=== PATIENT | female | born 1970 | race African-American/Black ===

== ENCOUNTER 2019-01-14 13:27 | Emergency (ER) | payer OTHER ==
--- OUTSIDE RECORDS SUMMARY | 2019-01-14 13:30 | XMS REPORT ---
:1970 Author Organization e[employer] Care Team Providers Name Role Phone Marissa Boyle Provider Role Unavailable Allergies, Adverse Reactions, Alerts Substance Reaction Event Type N.K.D.A. Info Not Available Non Drug Allergy Problems Problem Type Condition Code Onset Dates Condition Status Problem Body mass index (BMI) of 40.0-44.9 Z68.41 Active in adult Problem Morbid (severe) obesity due to E66.01 Active excess calories Problem Abnormal urine odor R82.90 Active Problem Urinary frequency R35.0 Active Problem Morbid obesity E66.01 Active Problem Essential hypertension I10 Active Problem Sinus problem J34.9 Active Problem Peripheral edema R60.9 Active Problem Family history of heart disease Z82.49 Active Problem Seasonal allergies J30.2 Active Assessment Dietary surveillance and counseling Z71.3 Active Assessment Abnormal urine odor R82.90 Active Assessment Body mass index (BMI) of 40.0-44.9 Z68.41 Active in adult Assessment Morbid obesity E66.01 Active Assessment Family history of heart disease Z82.49 Active Assessment Essential hypertension I10 Active Assessment Urinary frequency R35.0 Active Assessment Peripheral edema R60.9 Active Problem Dietary surveillance and counseling Z71.3 Active Medications Medication Code Code Instructions Start End Status Dosage System Date Date Hydrochlorothiazide [facility] 13139225247 50 MG Orally Active 1 tablet Once a day in the morning Results Name Result Date Reference Range Unit Abnormality Flag Urine Dip Stick ----SP. Gr 1.020 20190103 ----pH 7.5 96019344 ----Ketone Negative 20190103 ----Glucose Negative [id number] ----Blood Negative [id number] ----Protein Negative [id number] ----Nitrite Negative [id number] ----Leukocytes Negative [id number] Summary Purpose eClinicalWorks Submission
--- OUTSIDE RECORDS SUMMARY | 2019-01-14 13:30 | XMS REPORT ---
:1970 [facility] Address [address] [place] [address] Dr. Griffith [address] [place] [id number] Care Team Providers Name Role Phone Unavailable Unavailable Unavailable Problems This patient has no known problems. Allergies, Adverse Reactions, Alerts This patient has no known allergies or adverse reactions. Medications This patient has no known medications.
[2019-01-14 14:02] LABS: Urine Blood NEGATIVE (NEG); Urine Glucose NEGATIVE (NEG); Urine Protein NEGATIVE (NEG)
[2019-01-14] MEDS ORDERED: NA CHLORIDE 0.9% 1,000 ML ONE (14:24)
[2019-01-14 14:31] LABS: Protime INR 1.1
[2019-01-14 14:32] LABS: Absolute Lymphocytes (CBC) 2.7 K/uL (0.7-4.9); Basophils % 1.2 % (0-1.3); Hematocrit 37.1 % (36.0-45.0); Lymphocytes % 27.3 % (15.3-44.8); MPV 8.6 fL (7.6-11.3); RBC Red Blood Cell Count 4.13 M/uL (3.86-4.86)
--- NOTE | 2019-01-14 14:36 | RAD REPORT ---
EXAM DESCRIPTION: RAD - Chest Single View - 01/14/2019 2:29 pm CLINICAL HISTORY: COUGH Chest pain. COMPARISON: No comparisons FINDINGS: Portable technique limits examination quality. The lungs are grossly clear. The heart is normal in size. No displaced fractures. IMPRESSION: No acute intrathoracic process suspected.
[2019-01-14 14:51] LABS: ALT/SGPT 21 U/L (12-78); AST/SGOT 16 U/L (15-37); Albumin 3.3 g/dL (3.4-5.0); Alkaline Phosphatase 62 U/L (45-117); BUN Blood Urea Nitrogen 11 mg/dL (7-18); Bicarbonate 24 mmol/L (21-32); Bilirubin Direct < 0.1 mg/dL (0-0.2); Bilirubin Total 0.2 mg/dL (0.2-1.0); Glucose Level 103 mg/dL (74-106); Lipase 131 U/L (73-393); Magnesium 2.2 mg/dL (1.8-2.4); NT PRO-BNP 86 pg/mL (<125); Potassium 3.1 mmol/L (3.5-5.1); Protein, Total 7.5 g/dL (6.4-8.2); Sodium Level 141 mmol/L (136-145); Troponin (Emerg Dept Use Only) < 0.02 ng/mL (0.0-0.045)
--- NOTE | 2019-01-14 15:33 | EDPHYS ---
Physician Documentation [facility] Name: Lisbeth Lubin Age: 48 yrs Sex: Female : 1970 Arrival Date: 01/14/2019 Time: 13:32 Bed 28 Private MD: Marissa Boyle ED Physician Sergei Velasquez HPI: 01/14 14:28 This 48 yrs old Black Female presents to ER via Ambulatory with complaints of Nausea, cj Dizziness, Weakness. 14:28 The patient presents to the emergency department with nausea. Onset: The cj symptoms/episode began/occurred 3 day(s) ago. 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 - Social history:: Smoking status: Patient/guardian denies using tobacco. - Ebola Screening: : Patient denies exposure to infectious person Patient denies travel to an Ebola-affected area in the 21 days before illness onset. ROS: 14:29 Constitutional: Negative for fever, chills, and weight loss, Eyes: Negative for injury, cj pain, redness, and discharge, ENT: Negative for injury, pain, and discharge, Neck: Negative for injury, pain, and swelling, Cardiovascular: Negative for chest pain, palpitations, and edema, Respiratory: Negative for shortness of breath, cough, wheezing, and pleuritic chest pain, Back: Negative for injury and pain, : Negative for injury, bleeding, discharge, and swelling, MS/Extremity: Negative for injury and deformity, Skin: Negative for injury, rash, and discoloration, Neuro: Negative for headache, weakness, numbness, tingling, and seizure, Allergy/Immunology: Negative for hives, rash, and allergies, Endocrine: Negative for neck swelling, polydipsia, polyuria, polyphagia, and marked weight changes, Hematologic/Lymphatic: Negative for swollen nodes, abnormal bleeding, and unusual bruising. 14:29 Abdomen/GI: Positive for nausea. 14:29 Psych: Positive for anxiety. Exam: 14:29 Constitutional: This is a well developed, well nourished patient who is awake, alert, cj and in no acute distress. Head/Face: Normocephalic, atraumatic. Eyes: Pupils equal round and reactive to light, extra-ocular motions intact. Lids and lashes normal. Conjunctiva and sclera are non-icteric and not injected. Cornea within normal limits. Periorbital areas with no swelling, redness, or edema. ENT: Nares patent. No nasal discharge, no septal abnormalities noted. Tympanic membranes are normal and external auditory canals are clear. Oropharynx with no redness, swelling, or masses, exudates, or evidence of obstruction, uvula midline. Mucous membranes moist. Neck: Trachea midline, no thyromegaly or masses palpated, and no cervical lymphadenopathy. Supple, full range of motion without nuchal rigidity, or vertebral point tenderness. No Meningismus. Chest/axilla: Normal chest wall appearance and motion. Nontender with no deformity. No lesions are appreciated. Cardiovascular: Regular rate and rhythm with a normal S1 and S2. No gallops, murmurs, or rubs. Normal PMI, no JVD. No pulse deficits. Respiratory: Lungs have equal breath sounds bilaterally, clear to auscultation and percussion. No rales, rhonchi or wheezes noted. No increased work of breathing, no retractions or nasal flaring. Abdomen/GI: Soft, non-tender, with normal bowel sounds. No distension or tympany. No guarding or rebound. No evidence of tenderness throughout. Back: No spinal tenderness. No costovertebral tenderness. Full range of motion. Skin: Warm, dry with normal turgor. Normal color with no rashes, no lesions, and no evidence of cellulitis. MS/ Extremity: Pulses equal, no cyanosis. Neurovascular intact. Full, normal range of motion. Neuro: Awake and alert, GCS 15, oriented to person, place, time, and situation. Cranial nerves II-XII grossly intact. Motor strength 5/5 in all extremities. Sensory grossly intact. Cerebellar exam normal. Normal gait. Psych: Awake, alert, with orientation to person, place and time. Behavior, mood, and affect are within normal limits. 14:29 Musculoskeletal/extremity: DVT Exam: No signs of deep vein thrombosis. no pain, no swelling, no tenderness, negative Homans' sign noted on exam, no appreciated bluish discoloration, no erythema, no increased warmth. Vital Signs: 13:46 BP 116 / 89; Pulse 94; Resp 17; Temp 98.2(TE); Pulse Ox 99% on R/A; Weight 127.01 kg; ss Height 5 ft. 10 in. (177.80 cm); Pain 0/10; 14:58 BP 112 / 85; Pulse 85; Resp 18; Pulse Ox 100% on R/A; mg2 13:46 Body Mass Index 40.18 (127.01 kg, 177.80 cm) ss MDM: 13:55 Patient medically screened. [facility] 14:30 Data reviewed: vital signs, nurses notes, lab test result(s), EKG, radiologic studies, cj plain films. 01/14 13:47 Order name: Urine Dipstick--Ancillary (enter results); Complete Time: 15:27 01/14 13:47 Order name: Urine --Ancillary (enter results); Complete Time: 15: 01/14 13:57 Order name: Basic Metabolic Panel; Complete Time: 15:27 [facility] 01/14 13:57 Order name: CBC with Diff; Complete Time: 15:27 [facility] 01/14 13:57 Order name: LFT's; Complete Time: 15:27 [facility] 01/14 13:57 Order name: Magnesium; Complete Time: 15:27 [facility] 01/14 13:57 Order name: NT PRO-BNP; Complete Time: 15:27 [facility] 01/14 13:57 Order name: PT-INR; Complete Time: 15:27 [facility] 01/14 13:57 Order name: Troponin (emerg Dept Use Only); Complete Time: 15:27 [facility] 01/14 13:57 Order name: XRAY Chest (1 view); Complete Time: 15:27 [facility] 01/14 13:57 Order name: Lipase; Complete Time: 15:27 [facility] 01/14 13:57 Order name: Urine Culture [facility] 01/14 13:57 Order name: D-Dimer; Complete Time: 15:27 [facility] 01/14 14:28 Order name: TSH; Complete Time: 15:29 [facility] 01/14 13:57 Order name: EKG; Complete Time: 13:59 [facility] 01/14 13:57 Order name: Cardiac monitoring; Complete Time: 14:09 [facility] 01/14 13:57 Order name: EKG - Nurse/Tech; Complete Time: 14:09 [facility] 01/14 13:57 Order name: IV Saline Lock; Complete Time: 14:09 [facility] 01/14 13:57 Order name: Labs collected and sent; Complete Time: 14:10 [facility] 01/14 13:57 Order name: O2 Per Protocol; Complete Time: 14:10 [facility] 01/14 13:57 Order name: O2 Sat Monitoring; Complete Time: 14:10 [facility] 01/14 13:57 Order name: Urine Dipstick-Ancillary (obtain specimen); Complete Time: 13:59 [facility] Administered Medications: 14:10 Drug: NS 0.9% 1000 ml Route: IV; Rate: 125 ml/hr; Site: left antecubital; mg2 15:49 Follow up: Response: No adverse reaction; IV Status: Order to discontinue infusion; IV mg2 Intake: 250ml 15:49 Drug: Potassium Effervescent Tablet 50 mEq Route: PO; mg2 15:49 Follow up: Response: No adverse reaction; Medication administered at discharge. mg2 Disposition: 01/14/19 15:32 Discharged to Home. Impression: Nausea, Insomnia, unspecified, Hypokalemia. - Condition is Stable. - Discharge Instructions: Hypertension, Insomnia, Nausea, Adult, Hypertension, Ecdw-[id number]-Vwoz, Hypokalemia, Nausea, Adult, Gnpx-[id number]-[id number]. - Prescriptions for Restoril 7.5 mg Oral Capsule - take 2 capsule by ORAL route At bedtime As needed; 20 capsule. Zofran 4 mg Oral Tablet - take 1 tablet by ORAL route every 12 hours As needed; 20 tablet. - Medication Reconciliation Form, Thank You Letter, Antibiotic Education, Prescription Opioid Use form. - Follow up: Marissa Boyle; When: 2 - 3 days; Reason: Recheck today's complaints, Continuance of care, Re-evaluation by your physician. - Problem is new. - Symptoms have improved. Signatures: Dispatcher [employer] EDMS Sergei Velasquez MD MD cha Smirch, Shelby, RN RN ss Cal Bryant RN RN mg2 Corrections: (The following items were deleted from the chart) 15:50 15:32 01/14/2019 15:32 Discharged to Home. Impression: Nausea; Insomnia, unspecified; mg2 Hypokalemia. Condition is Stable. Discharge Instructions: Hypertension, Insomnia, Nausea, Adult, Hypertension, Fmxv-md-Aeac, Nausea, Adult, Tvlj-nv-Vbmi. Prescriptions for Restoril 7.5 mg Oral Capsule - take 2 capsule by ORAL route At bedtime As needed; 20 capsule. and Forms are Medication Reconciliation Form, Thank You Letter, Antibiotic Education, Prescription Opioid Use. Follow up: Marissa Boyle; When: 2 - 3 days; Reason: Recheck today's complaints, Continuance of care, Re-evaluation by your physician. Problem is new. Symptoms have improved. cj
--- NOTE | 2019-01-14 15:33 | ER ---
Nurse's Notes [facility] Name: Lisbeth Lubin Age: 48 yrs Sex: Female : 1970 Arrival Date: 01/14/2019 Time: 13:32 Bed 28 Private MD: Marissa Boyle Diagnosis: Nausea;Insomnia, unspecified;Hypokalemia Presentation: 01/14 13:44 Presenting complaint: Patient states: urinary frequency, decreased appetite, nausea and ss sensation as if unable to take deep breath x 3 days. Transition of care: patient was not received from another setting of care. Onset of symptoms was January 11, 2019. Risk Assessment: Do you want to hurt yourself or someone else? Patient reports no desire to harm self or others. Initial Sepsis Screen: Does the patient meet any 2 criteria? No. Patient's initial sepsis screen is negative. Does the patient have a suspected source of infection? No. Patient's initial sepsis screen is negative. Care prior to arrival: None. 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 - Social history:: Smoking status: Patient/guardian denies using tobacco. - Ebola Screening: : Patient denies exposure to infectious person Patient denies travel to an Ebola-affected area in the 21 days before illness onset. Screenin:51 Abuse screen: Denies threats or abuse. Denies injuries from another. Nutritional mg2 screening: No deficits noted. Tuberculosis screening: No symptoms or risk factors identified. Fall Risk None identified. Assessment: 13:51 General: Appears in no apparent distress. comfortable, Behavior is calm, cooperative. mg2 Pain: Complains of pain in upper back Pain does not radiate. Pain currently is 3 out of 10 on a pain scale. Quality of pain is described as aching. Neuro: Level of Consciousness is awake, alert, obeys commands, Oriented to person, place, time, situation. Neuro: Reports weakness. Cardiovascular: Capillary refill < 3 seconds Patient's skin is warm and dry. Respiratory: Airway is patent Respiratory effort is even, unlabored, Respiratory pattern is regular, symmetrical. GI: Abdomen is round non-distended, Reports nausea. : Reports urinary frequency. EENT: No signs and/or symptoms were reported regarding the EENT system. Derm: Skin is intact, is healthy with good turgor, Skin is pink, warm \T\ dry. normal. Musculoskeletal: Circulation, motion, and sensation intact. Capillary refill < 3 seconds. Vital Signs: 13:46 BP 116 / 89; Pulse 94; Resp 17; Temp 98.2(TE); Pulse Ox 99% on R/A; Weight 127.01 kg; ss Height 5 ft. 10 in. (177.80 cm); Pain 0/10; 14:58 BP 112 / 85; Pulse 85; Resp 18; Pulse Ox 100% on R/A; mg2 13:46 Body Mass Index 40.18 (127.01 kg, 177.80 cm) ED Course: 13:32 Patient arrived in ED. dp 13:33 Marissa Boyle MD is Private Physician. dp 13:40 Cal Bryant, ANNABELLE is Primary Nurse. mg2 13:46 Triage completed. ss 13:46 Arm band placed on right wrist. ss 13:54 Patient has correct armband on for positive identification. mg2 13:54 No provider procedures requiring assistance completed. mg2 13:55 Sergei Velasquez MD is Attending Physician. cj 14:11 Inserted saline lock: 20 gauge in left antecubital area, using aseptic technique. Blood mg2 collected. 14:31 XRAY Chest (1 view) In Process Unspecified. EDMS 14:35 EKG done, by lawn and garden technician. reviewed by Sergei Velasquez MD. sm3 15:32 Marissa Boyle MD is Referral Physician. cj 15:50 IV discontinued, intact, bleeding controlled, No redness/swelling at site. Pressure mg2 dressing applied. Administered Medications: 14:10 Drug: NS 0.9% 1000 ml Route: IV; Rate: 125 ml/hr; Site: left antecubital; mg2 15:49 Follow up: Response: No adverse reaction; IV Status: Order to discontinue infusion; IV mg2 Intake: 250ml 15:49 Drug: Potassium Effervescent Tablet 50 mEq Route: PO; mg2 15:49 Follow up: Response: No adverse reaction; Medication administered at discharge. mg2 Intake: 15:49 IV: 250ml; Total: 250ml. mg2 Outcome: 15:32 Discharge ordered by . cj 15:50 Discharged to home ambulatory. mg2 15:50 Condition: stable 15:50 Discharge instructions given to patient, Instructed on discharge instructions, follow up and referral plans. medication usage, Demonstrated understanding of instructions, follow-up care, medications, Prescriptions given X 2. 15:50 Patient left the ED. mg2 Signatures: Dispatcher [employer] EDNE Sergei Velasquez MD MD cha Smirch, Shelby, RN RN ss Cal Bryant RN RN mg2 Judy Tubbs 3 Suman Van Corrections: (The following items were deleted from the chart) 13:51 13:44 Presenting complaint: Patient states: urinary frequency, decreased appetite, mg2 nausea and sensation as if unable to take deep breath x 3 days. ss
[2019-01-14] MEDS ORDERED: POTASSIUM 25 MEQ EFFERV TAB ONE (15:54)
--- NOTE | 2019-01-15 10:39 | EKG ---
Test Date: 2019-01-14 Test Time: 14:31:53 Molding Process Technician: ANALI/Tito MEASUREMENT RESULTS: Intervals: Rate: 90 NJ: 144 QRSD: 88 QT: 362 QTc: 442 [place]: P: 41 NJ: 144 QRS: -4 T: 10 INTERPRETIVE STATEMENTS: Normal sinus rhythm Moderate voltage criteria for LVH, may be normal variant Borderline ECG No previous ECG available for comparison Electronically Signed On 01-15-19 10:38:56 CDT by Jono Barrera
== END 2019-01-14 15:50 | disposition home or self-care (01) ==
LOC: ER 13:27
DX: R11.0 Nausea (principal); G47.00 Insomnia, unspecified; E87.6 Hypokalemia; I10 Essential (primary) hypertension
CPT/HCPCS: 36415; 71045; 80048; 80076; 81003; 81025; 83690; 83735; 83880; 84443; 84484; 85025; 85379; 85610; 87086; 87088; 93005; 96360; 96361; 99284; J7030